=== PATIENT | male | born 1980 | race Caucasian/White ===

== ENCOUNTER 2023-01-16 11:56 | Emergency (ER) | payer BC ==
[~2023-01-16] VITALS: Ht 175.3 cm; Wt 75.0 kg
[2023-01-16 11:59] VITALS: BP 105/60
[2023-01-16] MEDS ORDERED: LIDOcaine 1% W/epiNEPHrine 1:100,000 20ml vial SQ ONE (12:15)
[2023-01-16] MEDS ORDERED: SULF1TAB49 PO (12:27)
== END 2023-01-16 13:00 | disposition home or self-care (01) ==
LOC: ER 11:57
DX: L02.411 Cutaneous abscess of right axilla (principal); Z79.899 Other long term (current) drug therapy
CPT/HCPCS: 10060; 99283; A6449

== ENCOUNTER 2024-09-17 07:28 | Emergency (ER) | payer MEDICAID ==
[~2024-09-17] VITALS: Ht 180.3 cm; Wt 47.1 kg
[~2024-09-17 07:28] MED LIST: ONDA-245 PO
[2024-09-17 07:32] VITALS: BP 107/77; PULSE 72; RESP 15; O2SAT 97
[2024-09-17] MEDS ORDERED: TAM75C PO (10:07)
[2024-09-17] MEDS ORDERED: GABA300C PO (10:07)
[2024-09-17] MEDS ORDERED: AZIT250T83 PO (10:07)
[2024-09-17] MEDS ORDERED: METH-798 PO (10:07)
[2024-09-17] MEDS ORDERED: TRAZ-256 PO (10:07)
[2024-09-17 10:24] VITALS: TEMP 98
== END 2024-09-17 10:29 | disposition home or self-care (01) ==
LOC: ER 07:29
DX: B34.9 Viral infection, unspecified (principal); Z79.899 Other long term (current) drug therapy
CPT/HCPCS: 99283

== ENCOUNTER 2024-10-23 10:59 | Emergency (ER) | payer MEDICAID ==
[~2024-10-23] VITALS: Ht 180.3 cm; Wt 65.9 kg
[~2024-10-23 10:59] MED LIST changes: +GABA300C PO; +METH-798 PO; +TRAZ-256 PO
[2024-10-23 11:05] VITALS: BP 135/64; PULSE 53; RESP 18; O2SAT 99
[2024-10-23] MEDS ORDERED: METH-798 PO (11:45)
[2024-10-23] MEDS ORDERED: TRAZ-256 PO (11:45)
[2024-10-23] MEDS ORDERED: GABA-535 PO (11:45)
[2024-10-23 11:52] VITALS: TEMP 98.2
== END 2024-10-23 11:50 | disposition home or self-care (01) ==
LOC: ER 11:00
DX: F41.9 Anxiety disorder, unspecified (principal); Z76.0 Encounter for issue of repeat prescription; Z79.899 Other long term (current) drug therapy
CPT/HCPCS: 99281

== ENCOUNTER 2024-10-26 17:26 | Emergency (ER) | payer MEDICAID ==
[~2024-10-26] VITALS: Ht 180.3 cm; Wt 66.8 kg
[~2024-10-26 17:26] MED LIST changes: +GABA-535 PO
[2024-10-26 17:46] VITALS: BP 162/100; PULSE 63; RESP 18; TEMP 98.5; O2SAT 97
[2024-10-26] MEDS ORDERED: GABA300C PO (17:56)
== END 2024-10-26 18:22 | disposition home or self-care (01) ==
LOC: ER 17:27
DX: Z00.8 Encounter for other general examination (principal); Z76.0 Encounter for issue of repeat prescription
CPT/HCPCS: 99281

== ENCOUNTER 2025-03-23 05:44 | Emergency (ER) | payer BC, MEDICAID ==
[~2025-03-23] VITALS: Ht 177.8 cm; Wt 70.6 kg
--- NOTE | 2025-03-23 06:43 | Physician Documentation ---
History of Present Illness ~ Chief Complaint: Flu Symptoms Stated Complaint: SORE THROAT,CONGESTION,BODY PAIN Time Seen by MD: 06:28 Primary Medical Doctor: n/a HPI 44-year-old male presenting with flu-like symptoms He tells me for the past 2 days he has had multiple symptoms including congestion, cough, sore throat, body aches, chills, and acid reflux. He tells me he recently traveled to [place] and was around a lot of people. He has been taking [id number] cough and cold medications with only partial relief. He did not go to work yesterday. No difficulty swallowing, vomiting or diarrhea. No IV drug use Medication Reconciliation Allergies: Coded Allergies: No Known Allergies (Unverified , 09/06/24) Scheduled Gabapentin (Neurontin), 1 CAP PO Q8H Gabapentin (Gabapentin), 1 CAP PO Q8H Gabapentin (Neurontin), 1 CAP PO Q8H Methocarbamol (Methocarbamol), 1 TAB PO Q12H Methocarbamol (Methocarbamol), 1 TAB PO Q8H Trazodone HCl (Trazodone HCl), 1 TAB PO HS Trazodone HCl (Trazodone HCl), 1 TAB PO HS Scheduled PRN Ondansetron 8mg ODT (Ondansetron Odt), 1 TAB PO TID PRN for nausea/vomiting Past Medical History Past Medical History: No Pertinent History Past Surgical History: noncontributory Lives In: Home Occupation: employed Review of Systems Constitutional: Reports: chills, fever Respiratory: Reports: cough; Denies: shortness of breath Cardiovascular: Denies: chest pain Gastrointestinal: Reports: nausea; Denies: abdominal pain, vomiting Physical Exam Vital Signs: Temperature: 98.1, Source: Oral, Heart Rate: 74, Respiratory Rate: 16, BP: 127/68, Pulse Oximetry: 99, Weight: 70.600 Oxygen Flow Rate: 0 Physical Exam General: This is a nontoxic-appearing young man sitting calmly in bed HEENT: Atraumatic, oropharynx is moist, mild generalized oropharyngeal erythema without unilateral swelling or white exudate Heart: Regular rate and rhythm, no murmur, normal-appearing peripheral p erfusion Lungs: Clear breath sounds bilateral, no wheezing or crackles, normal work of breathing, normal oxygen saturation on room air Abdomen: Soft, nondistended, nontender all quadrants Neuro: Alert and oriented Psychiatric: Calm and cooperative with exam Progress Results/Orders Results/Orders Vital Signs 03/23/25 03/23/25 03/23/25 05:55 06:24 06:31 Temp 98.1 Pulse 64 74 Resp 14 16 16 B/P (MAP) 125/73 127/68 (87) Pulse Ox 99 99 O2 Flow Rate 0 0 Medical Decision Making Differential Dx:Considerations: Include: Dehydration, Electrolyte imbalance, Influenza, Pneumonia, Viral Syndrome Additional Comment The patient presents with viral type symptoms. He has no evidence of an ear infection, strep throat, pneumonia, or other dangerous infection. He did home COVID tests which were negative. I do not feel that any further workup or testing is indicated. He will be given a work note and home care instructions for a viral upper respiratory infection. Return precautions given. Departure Time of Disposition: 06:42 Disposition: 01 HOME / SELF CARE / HOMELESS Impression: Primary Impression: Viral infection Condition: Stable Discharge Instructions: Viral Illness Departure Forms: Excuse form Work or School Excused From: Work Excuse beginning now through the following date: Mar 26, 2025 Referrals: NO PRIMARY CARE PROVIDER (PCP) Education Educated: Patient Educated regarding: diagnosis, treatment, need for follow up Signature Scribe Signature: na Attestation: DA Melendez MD Mar 23, 2025 06:43
[2025-03-23 06:51] VITALS: BP 136/77; PULSE 78; RESP 18; TEMP 98.1; O2SAT 99
== END 2025-03-23 06:56 | disposition home or self-care (01) ==
LOC: ER 05:45
DX: B34.9 Viral infection, unspecified (principal); K21.9 Gastro-esophageal reflux disease without esophagitis; Z79.899 Other long term (current) drug therapy
CPT/HCPCS: 99282